=== PATIENT | male | born 1980 | race Caucasian/White ===

== ENCOUNTER 2020-07-15 11:28 | Day surgery (SDC) | payer BC, OTHER ==
[2020-07-11 17:49] VITALS: BMI 26.7
[2020-07-15] MEDS ORDERED: PROPOFOL 20 ML ONE ×2 (13:53)
[2020-07-15 14:44] VITALS: PULSE 68
[2020-07-15 14:56] VITALS: BP 121/65; TEMP 98
--- NOTE | 2020-07-21 16:13 | PATH ---
Surgical Pathology Report Patient Name: ARUNA ARRIETA [facility]. Rec. #: [id number] /Age/Gender: 1980 (Age: 40) / M Account: [id number] Location: [facility] Taken: 07/15/2020 Received: 07/15/2020 Reported: 07/21/2020 Physicians: Deisy Nickerson M.D. Specimen(s) Received A: SECOND PORTION OF DUODENUM B: ANTRUM C: GE JUNCTION Clinical History Dyspepsia Postoperative diagnosis: Gastritis Final Diagnosis A. second portion of duodenum, biopsy: Duodenal mucosa with no pathologic findings. B. antrum, biopsy: Mild chronic gastritis. Immunostain is negative for H. pylori organisms. C. GE junction, biopsy: Esophagogastric junctional (squamocolumnar) mucosa showing mild chronic inflammation and focal intestinal metaplasia. Negative for dysplasia. Electronically Signed Sandra Allison M.D. Gross Description A. Received in formalin, labeled "second portion of duodenum" is a jacques, irregular portion of soft tissue measuring 0.3 cm. in greatest dimension. The specimen is submitted in toto in one cassette. B. Received in formalin, labeled "antrum" is a jacques, irregular portion of soft tissue measuring 0.6 cm. in greatest dimension. The specimen is submitted in toto in one cassette. C. Received in formalin, labeled "GE junction" is a jacques, irregular portion of soft tissue measuring 0.3 cm. in greatest dimension. The specimen is submitted in toto in one cassette. 07/18/2020 saudi07/18/2020
== END 2020-07-15 14:57 | disposition home or self-care (01) ==
LOC: FASU-ENDO 11:28
PROVIDERS: ATTEND Internal Medicine Gastroenterology
PROC: 0DB68ZX Excision of Stomach, Via Natural or Artificial Opening Endoscopic, Diagnostic (ICD-10-PCS; 2020-07-15)
PROC: 0DB48ZX Excision of Esophagogastric Junction, Via Natural or Artificial Opening Endoscopic, Diagnostic (ICD-10-PCS; 2020-07-15)
PROC: 0DB98ZX Excision of Duodenum, Via Natural or Artificial Opening Endoscopic, Diagnostic (ICD-10-PCS; principal; 2020-07-15 14:05)
DX: K29.50 Unspecified chronic gastritis without bleeding (principal); K20.9 Esophagitis, unspecified; R10.13 Epigastric pain
CPT/HCPCS: 88305-TC; 88342-TC

== ENCOUNTER 2021-10-13 07:39 | Day surgery (SDC) | payer BC, OTHER ==
[2021-10-11 19:44] VITALS: BMI 28.1
[2021-10-13 09:40] VITALS: TEMP 97.7
[2021-10-13 12:23] VITALS: BP 112/76; PULSE 58
== END 2021-10-13 10:10 | disposition home or self-care (01) ==
LOC: FASU-ENDO 07:39
PROVIDERS: ATTEND Internal Medicine Gastroenterology
PROC: 0DB98ZX Excision of Duodenum, Via Natural or Artificial Opening Endoscopic, Diagnostic (ICD-10-PCS; principal; 2021-10-13)
PROC: 0DB68ZX Excision of Stomach, Via Natural or Artificial Opening Endoscopic, Diagnostic (ICD-10-PCS; 2021-10-13)
PROC: 0DB38ZX Excision of Lower Esophagus, Via Natural or Artificial Opening Endoscopic, Diagnostic (ICD-10-PCS; 2021-10-13)
DX: K22.70 Barrett's esophagus without dysplasia (principal); K29.50 Unspecified chronic gastritis without bleeding; K20.90 Esophagitis, unspecified without bleeding
CPT/HCPCS: 88305-TC; 88342-TC

== ENCOUNTER 2022-10-05 10:35 | Day surgery (SDC) | payer BC ==
[2022-10-03 15:20] VITALS: BMI 28.1
[2022-10-05 12:13] VITALS: TEMP 97.5
[2022-10-05 12:52] VITALS: BP 113/73; PULSE 65; RESP 16
== END 2022-10-05 12:49 | disposition home or self-care (01) ==
LOC: FASU-ENDO 10:35
PROVIDERS: ATTEND Internal Medicine Gastroenterology
PROC: 0DB68ZX Excision of Stomach, Via Natural or Artificial Opening Endoscopic, Diagnostic (ICD-10-PCS; 2022-10-05)
PROC: 0DB48ZX Excision of Esophagogastric Junction, Via Natural or Artificial Opening Endoscopic, Diagnostic (ICD-10-PCS; 2022-10-05)
PROC: 0DB98ZX Excision of Duodenum, Via Natural or Artificial Opening Endoscopic, Diagnostic (ICD-10-PCS; principal; 2022-10-05 11:30)
DX: K22.70 Barrett's esophagus without dysplasia (principal); K31.7 Polyp of stomach and duodenum; K29.50 Unspecified chronic gastritis without bleeding; Z13.810 Encounter for screening for upper gastrointestinal disorder; Z87.19 Personal history of other diseases of the digestive system
CPT/HCPCS: 88305-TC; 88342-TC

== ENCOUNTER 2024-10-16 08:28 | Day surgery (SDC) | payer OTHER ==
[2024-10-14 12:43] VITALS: BMI 28.8
[2024-10-16] MEDS ORDERED: LIDOCAINE HCL/PF 2% SDV 5ML VIAL ONE (09:45)
[2024-10-16] MEDS ORDERED: MIDAZOLAM HCL 2 MG/2 ML SINGLE DOSE VIAL ONE (09:46)
[2024-10-16] MEDS ORDERED: PROPOFOL 40 ML ONE (09:46)
[2024-10-16 10:09] VITALS: RESP 18; TEMP 97.3
[2024-10-16 10:27] VITALS: BP 110/64; PULSE 72
== END 2024-10-16 10:24 | disposition home or self-care (01) ==
LOC: FASU-ENDO 08:28
PROVIDERS: ATTEND Internal Medicine Gastroenterology
PROC: 0DB68ZX Excision of Stomach, Via Natural or Artificial Opening Endoscopic, Diagnostic (ICD-10-PCS; 2024-10-16)
PROC: 0DB98ZX Excision of Duodenum, Via Natural or Artificial Opening Endoscopic, Diagnostic (ICD-10-PCS; principal; 2024-10-16 09:50)
DX: Z13.810 Encounter for screening for upper gastrointestinal disorder (principal); K31.7 Polyp of stomach and duodenum; K44.9 Diaphragmatic hernia without obstruction or gangrene; K29.50 Unspecified chronic gastritis without bleeding; K20.90 Esophagitis, unspecified without bleeding; Z87.19 Personal history of other diseases of the digestive system
CPT/HCPCS: 88305-TC; 88342-TC